=== PATIENT | male | born 1940 | race Caucasian/White ===

== ENCOUNTER → 2023-11-19 14:17 | Outpatient (REF) | payer OTHER, SELFPAY | LOC: RCS 14:17 | PROVIDERS: ATTENDING PHYSICIAN Family Medicine | DX: I49.9 Cardiac arrhythmia, unspecified (principal) | CPT/HCPCS: 93005 ==

== ENCOUNTER 2025-05-18 13:37 | Inpatient (IN) | payer OTHER, SELFPAY ==
[2025-05-18] VITALS (11 sets, daily range): BP systolic 148–180; BP diastolic 83–96; BMI 27.6
--- NOTE | 2025-05-18 09:02 | ED.GENMED ---
History of Present Illness
General
Chief Complaint: Fall
Time Seen by Provider: 05/18/25 08:44
History of Present Illness
History of Present Illness:
84-year-old male presents to the emergency department from home via EMS for evaluation after multiple falls. Had a fall yesterday and after that time was apparently not walking often. Today attempted to get up off the couch and slid to the floor.
He is complaining of right hip pain although history is limited secondary to dementia. Prior history of right total hip replacement. Patient offers no complaints other than right hip pain. No other concerns reported by family
Past History
Past History
ED Past Medical History: HTN, Hypercholesterolemia and Hypothyroidism
ED Past Surgical History: Cholecystectomy and Orthopedic
Social History
Tobacco: Former smoker
Personal:
Review of Systems
Review of Systems
Allergies reviewed?: Yes
All Other Systems: ROS reviewed and negative except as documented in HPI and ROS
Phy Exam
Physical Exam
Physical Exam:
GEN: Well appearing, NAD, WDWN
Eyes: PERRLA, EOMs intact, no scleral icterus
HENT: NCAT, oral mucosa moist
Lungs: CTAB, no wheezes, rales, rhonchi, normal chest wall excursion
Cardiac: RRR, no M/R/G, no peripheral edema. Radial pulses 2+ bilat
Abdomen: S, NT, ND, NABS, no masses or hepatosplenomegaly
Neuro: Alert to place, confused to events and time, moves all extremities freely, follows commands
MSK: No gross deformity or ecchymosis. No shortening or external rotation of the right lower extremity, tenderness elicited to the trochanteric region of the right hip, no palpable hematoma, range of motion exam deferred due to pain
Skin: No rashes, petechiae. Normal color, no pallor or jaundice.
Psych: Calm, cooperative, proper hygiene
Course
Orders/Labs/Results
Orders:
Orders
05/18/25 08:51
CR Hip - RT w/wo Pel 2-3 Vw* Urgent
Comment:
Reason For Exam: R hip pain, prior surgery
Include a pelvis x-ray?: Yes
05/18/25 08:57
Acetaminophen [Tylenol] 650 mg PO NOW STA
05/18/25 09:00
Complete Blood Count/With Diff Urgent
Comprehensive Metabolic Panel Urgent
05/18/25 09:10
Urinalysis Reflex To Culture Urgent
Date Specimen was Collected: 05/18/25
Time Specimen was Collected: 09:09
Urine Microscopic Reflex Cult Urgent
Urine Culture Urgent
KARMEN Source: U
Specimen Description:
Date Specimen was Collected: 05/18/25
Time Specimen was Collected: 09:09
05/18/25 10:22
CT Pelvis W/o Iv Contrast Urgent
Comment:
Reason For Exam: fall, R hip pain, neg XR
05/18/25 10:39
CefTRIAXone [Rocephin] 1,000 mg IV NOW STA
05/18/25 12:12
Ketorolac [Toradol] 15 mg IV NOW STA
05/18/25 13:08
Admit/Transfer Patient As Directed
Co-Sign Provider:
Level of Care: Inpatient admission
Assign to:: Medical/Surgical
Physician / Group: Hospitalist
Diagnosis: UTI
Reason for Hospitalization: UTI
Expected length of stay greater than two midnights?: Yes
ELOS- Estimated Length of Stay in days: 2
I certify the patient meets the requirements for IP care: Yes
PRN Pain Medication Management As Directed
May give lesser potent ordered pain med per pt: Yes
preference::
Protocol:: Medication orders for pain may be administered in a
manner that supports deferring to patient preference
when the pt is:
- Requesting an ordered lesser potent pain medication.
Least to most potent pain medications are defined
as: acetaminophen < NSAID < tramadol < opioids
(morphine, oxycodone, hydromorphone).
- Requesting a lesser dose of the same medication IF
ORDERED.
- Requesting a less intrusive route of administration
if both routes are prescribed by the provider (PO <
IV).
05/18/25 13:09
Code Status As Directed
Resuscitation Status: Full Code
Abnormal Lab Results
05/18/25 05/18/25
09:00 09:10
MCHC 32.2 L g/dL
(33.0-37.0)
Absolute Neuts (auto) 7.2 H 10^3/uL
(1.4-6.5)
Absolute Lymphs (auto) 1.0 L 10^3/uL
(1.2-3.4)
Neutrophils % 79.6 H %
(42.2-75.2)
Lymphocytes % 11.0 L %
(20.5-51.1)
Glucose 109 H mg/dl
(70-99)
Ur Occult Blood Reflex 4+ A
(Negative)
Urine Nitrite (Reflex) Positive A
(Negative)
Leukocyte Esterase Rfl 2+ A
(Negative)
Urine WBC (Reflex) 16-20 A /HPF
(0-5)
Urine Bacteria (Reflex) Many A
(Negative)
Urine Albumin (Reflex) 2+ A
(Neg - Trace)
05/18/25 09:00
05/18/25 09:00
Vital Signs
Initial and Last Documented VS:
Initial Vital Signs
Pulse Resp Pulse Ox
70 21 95
05/18/25 08:54 05/18/25 08:54 05/18/25 08:54
Last Documented Vital Signs
Temp Pulse Resp BP Pulse Ox
98.5 F 78 19 165/83 94
05/18/25 09:13 05/18/25 13:15 05/18/25 12:00 05/18/25 13:00 05/18/25 13:15
MDM/Problems Addressed
MDM/Problems Addressed:
Imaging shows no evidence of traumatic injury to the right hip or pelvis, given his clear weakness and ambulatory dysfunction will admit for treatment of UTI with IV antibiotics and PT considerations for rehab if needed
*Pulse Oximetry
Patient hypoxic: no
*Critical Care Note
Total Time (30-74mins, 75-104mins- exclusive of procedures): Not Applicable
ED Attending Note
-
Portions of this chart may have been created with voice recognition software.� Occasional wrong word or��sound alike� substitutions may have occurred due to the inherent limitations of voice recognition software.
Discharge Plan
Departure
Patient Disposition: Admit
Date of Disposition: 05/18/25
Time of Disposition: 12:11
Admit to: Med/Surg
Presentation/result/management discussed w/ accepting MD/DO: Hospitalist
Discharge Problem:
Acute UTI
Interventions
Interventions:
*General Assessment Last Done: 05/18/25 09:15
*Neglect/Abuse Screening Last Done: 05/18/25 09:15
*ED- Fall Risk Assessment Last Done: 05/18/25 09:13
*ED COVID-19 Vaccine History Last Done: 05/18/25 09:12
*ED Influenza Vaccine History Last Done: 05/18/25 09:12
ED-Musculoskeletal Assessment Last Done: 05/18/25 09:15
ED- Neurological Assessment Last Done: 05/18/25 09:15
ED-Skin Assessment Last Done: 05/18/25 09:21
[2025-05-18] MEDS: TYLENOL 650 MG PO (09:07)
[2025-05-18 09:10] LABS: Hematocrit 44.4 % (39.0-52.0); Hemoglobin 14.3 g/dL (13.0-18.0); Mean Corp Hgb Conc. 32.2 g/dL (33.0-37.0); Mean Corpuscular Volume 91.7 fL (80.0-94.0); Nucleated Red Blood Cells % 0 % (-); Platelet Count 157 10^3/uL (130-400); Red Cell Dist. Width 14.3 % (11.5-14.5)
[2025-05-18 09:20] LABS: ALT (SGPT) 24 U/L (0-50); AST (SGOT) 40 U/L (17-59); Albumin 4.5 g/dl (3.5-5.0); Alkaline Phosphatase 111 U/L (38-126); Blood Urea Nitrogen 16 mg/dl (9-20); Calcium 9.2 mg/dl (8.4-10.2); Carbon Dioxide 30 mmol/L (22-30); Chloride 101 mmol/L (98-107); Estimated Creatinine Clearance 64 ml/min; Glucose 109 mg/dl (70-99); Potassium 4.2 mmol/L (3.5-5.1); Sodium 136 mmol/L (135-145); Total Protein 7.7 g/dl (6.3-8.2); eGFR > 60.00
[2025-05-18 09:39] LABS: Urine Character Cloudy (Clear)
[2025-05-18 10:29] LABS: Urine Red Blood Cell 0-2 /HPF (0-2); Urine Squamous Cell 0-2 /LPF (Few); Urine White Cell 16-20 /HPF (0-5)
[2025-05-18] MEDS: ROCEPHIN 1000 MG IV (10:47)
[2025-05-18] MEDS: TORADOL 15 MG IV (12:14)
--- NOTE | 2025-05-18 12:15 | HPS.HSE ---
Addendum entered and electronically signed by Manuel Trivedi MD 05/18/25 13:51:
This is an addendum to the H&P written by Darrel Angelo on 05/18/2025. �Patient seen and examined independently with resident.
84-year-old male past medical history of chronic anemia, hypothyroidism, hyperlipidemia, Alzheimer's dementia, BPH, depression, right total hip replacement, chronic urinary incontinence/bowel, presenting with fall.
Patient had a mechanical fall yesterday complaining of pain on his right hip. �No syncope or lightheadedness or head injury. �Normally ambulate with walker/cane.
No urinary symptoms
Vital signs show blood pressure 160s to 180s.
Labs unremarkable.
Pelvic CT showed right total hip arthroplasty without evidence of periprosthetic fracture or dislocation. �Mild asymmetric soft tissue stranding and edema within the proximal lateral thigh which represent superficial contusion. �No fluid collection.
Urinalysis shows +2 leukocyte esterase, 16-20 white cells, positive nitrate, cloudy urine.
Patient with mechanical fall with contusion of the right thigh. �Tylenol for pain, ibuprofen as needed, Dilaudid for severe. �PT OT.
Urinalysis suggestive of UTI however patient without any urinary symptoms. Continue ceftriaxone for now but doubt UTI.
Original Note:
Family Physician
-
Family Physician: Jennifer Franks
Chief Complaint
-
UTI
History of Present Illness
84-year-old male with past medical history of chronic anemia, hypothyroidism, hyperlipidemia, dementia, BPH, depression presenting from home via EMS for evaluation of mechanical fall. Patient has a history of Alzheimer's dementia and family reports
that he is at his baseline mental status. Patient fell down yesterday after he got up from the couch, he slid onto his right side. He complains of pain in his right hip area, on the lateral aspect after the fall. Patient denies any
lightheadedness/dizziness, no syncopal episodes before or after the fall. He denies head strike, no loss of consciousness. Patient denies fever/chills, no recent hospitalizations, is not on DOACs. He sees [facility] for Alzheimer's
dementia.
ED course�vitals�heart rate 70, RR�21, 95% on room air, BP 165/90. Blood work unremarkable. Urinalysis with evidence of UTI. X-ray with right total hip arthroplasty without evidence of dislocation/periprosthetic fracture. Pelvis CT�no evidence
of periprosthetic fracture, mild soft tissue stranding/edema within the proximal lateral thigh�superficial contusion.
Medical History
Past Medical History
Past Medical History: Reports Other (chronic anemia, hypothyroidism, hyperlipidemia, dementia, BPH, depression)
Past Surgical History: Reports Cholecystectomy, Orthopedic (Bilateral, total knee replacement, right hip arthroplasty.) and Other (Cataract surgery)
Social History
Tobacco: Former Smoker
Alcohol: None
Drug: None
Personal:
Living: With Family
Family History
Family History: Not pertinent
Allergies / Home Medications
Allergies reflects when Allergies were last updated in [employer].
Home Medications with original date entered in [employer]
Allergy/Medication List:
Allergies
Allergy/AdvReac Type Severity Reaction Status Date / Time
No Known Allergies Allergy Verified 05/18/25 08:56
Home Medications
atorvastatin 10 mg tablet 10 mg PO DAILY High cholesterol 01/11/21
levothyroxine 25 mcg tablet 75 mcg PO DAILY Thyroid 01/11/21
aspirin 81 mg tablet,delayed release 81 mg PO DAILY 05/18/25
bupropion HCl 75 mg tablet 75 mg PO DAILY 05/18/25
cholecalciferol (vitamin D3) 25 mcg (1,000 unit) capsule (Vitamin D3) 25 mcg PO DAILY 05/18/25
cyanocobalamin (vitamin B-12) 1,000 mcg sublingual tablet 1,000 mcg sublingual DAILY 05/18/25
donepezil 5 mg tablet 5 mg PO HS 05/18/25
folic acid 1 mg tablet 1 mg PO DAILY 05/18/25
memantine 10 mg tablet 10 mg PO BID 05/18/25
tamsulosin 0.4 mg capsule 0.4 mg PO HS 05/18/25
Review of Systems
-
A 12 point ROS was completed and negative except as noted: Yes
Physical Exam
Vital Signs
Vital Signs
Temp Pulse Resp BP Pulse Ox
98.5 F 70 19 148/84 94
05/18/25 09:13 05/18/25 12:00 05/18/25 12:00 05/18/25 12:00 05/18/25 12:00
Physical Exam
General: No Apparent Distress, Comfortable and Conversant
HEENT: NormoCephalic and Atraumatic
Respiratory: Clear
Cardiac: S1/S2 and Regular Rhythm
GI: Soft, Non Tender, Non Distended and Normal Bowel Sounds
Genito-urinary: No costovertebral tender
Musculoskeletal: Other (Right hip-tenderness to palpation of the bilateral aspect, no visible bruising, erythema. Decreased range of motion in the right hip due to pain. Sensations intact.)
Skin: Warm and Dry
Neuro: Awake, Alert, Oriented and AO x 3
Laboratory Results
-
05/18/25 09:00
05/18/25 09:00
Laboratory Results
Total Bilirubin 1.1 mg/dl (0.2-1.3) 05/18/25 09:00
AST 40 U/L (17-59) 05/18/25 09:00
ALT 24 U/L (0-50) 05/18/25 09:00
Alkaline Phosphatase 111 U/L (38-126) 05/18/25 09:00
Impression/Plan
-
IMPRESSION:
84-year-old male with past medical history of chronic anemia, hypothyroidism, hyperlipidemia, dementia, BPH, depression presenting from home via EMS for evaluation of mechanical fall. Urinalysis with evidence of UTI.
PLAN:
#UTI
Patient is asymptomatic. Denies dysuria, hematuria.
History of urinary/bowel incontinence.
No prior history of UTIs.
Normal white count, patient is afebrile
UA with evidence of UTI
Will start Rocephin
Check urine culture, will narrow antibiotics pending culture
Monitor WBC, fever curve
#Mechanical fall
X-ray right hip�Right total hip arthroplasty without evidence of dislocation or periprosthetic fracture.
Pelvis CT�right total hip arthroplasty without evidence of periprosthetic fracture or dislocation.Mild asymmetric soft tissue stranding and edema within the proximal lateral thigh which may represent a superficial contusion. No fluid collection.
Adequate pain control�acetaminophen, ibuprofen as needed.
PT/OT
#Hypothyroidism
Continue levothyroxine
#Hypercholesterolemia
Continue atorvastatin
#Depression
Continue bupropion
#Alzheimer's dementia
Continue memantine
Continue donepezil
#BPH
Continue tamsulosin
#Will hold off on aspirin
DVT prophylaxis�SCDs
Diet�low-cholesterol
Full code
[2025-05-18] MEDS: TORADOL 10 MG IV (17:28)
[2025-05-18] MEDS: TYLENOL 1000 MG PO (19:52)
[2025-05-18] MEDS: NAMENDA 10 MG PO (19:52)
[2025-05-18] MEDS: FLOMAX 0.4 MG PO (21:03)
[2025-05-18] MEDS: ARICEPT 5 MG PO (21:04)
[2025-05-18] MEDS: LIPITOR 10 MG PO (21:04)
[2025-05-19] VITALS (7 sets, daily range): BP systolic 106–181; BP diastolic 67–99; PULSE 98; O2SAT 98
[2025-05-19] MEDS: TORADOL 10 MG IV (01:56)
[2025-05-19] MEDS: SYNTHROID 75 MCG PO (06:05)
[2025-05-19 06:29] LABS: Hematocrit 40.9 % (39.0-52.0); Hemoglobin 13.3 g/dL (13.0-18.0); Mean Corp Hgb Conc. 32.5 g/dL (33.0-37.0); Mean Corpuscular Volume 88.9 fL (80.0-94.0); Nucleated Red Blood Cells % 0 % (-); Platelet Count 146 10^3/uL (130-400); Red Cell Dist. Width 14.4 % (11.5-14.5)
[2025-05-19 06:59] LABS: ALT (SGPT) 22 U/L (0-50); AST (SGOT) 50 U/L (17-59); Albumin 3.7 g/dl (3.5-5.0); Alkaline Phosphatase 82 U/L (38-126); Blood Urea Nitrogen 27 mg/dl (9-20); Calcium 8.5 mg/dl (8.4-10.2); Carbon Dioxide 28 mmol/L (22-30); Chloride 104 mmol/L (98-107); Estimated Creatinine Clearance 44 ml/min; Glucose 101 mg/dl (70-99); Potassium 4.1 mmol/L (3.5-5.1); Sodium 139 mmol/L (135-145); Total Protein 6.5 g/dl (6.3-8.2); eGFR 54.51
[2025-05-19] MEDS: IMODIUM LIQUID PO ×2 (08:33→08:44)
[2025-05-19] MEDS: WELLBUTRIN REGULAR RELEASE 150 MG PO (08:33)
[2025-05-19] MEDS: FOLVITE 1 MG PO (08:33)
[2025-05-19] MEDS: NAMENDA 10 MG PO ×2 (08:35→20:10)
[2025-05-19] MEDS: VITAMIN D3 (cholecalciferol) 25 MCG PO (08:35)
[2025-05-19] MEDS: TYLENOL 1000 MG PO ×2 (08:38→14:46)
[2025-05-19] MEDS: APRESOLINE 5 MG IV (08:59)
[2025-05-19] MEDS: ROCEPHIN 1000 MG IV (09:50)
[2025-05-19] MEDS: STERILE WATER FOR INJECTION 10 ML IV (09:50)
--- NOTE | 2025-05-19 12:55 | W.PN.HOSP.TC ---
Today's Communication/Plan
-
Monitor vital signs see plan
Follow final urine culture
Continue with ceftriaxone
PT/OT
Assessment / Plan
Assessment / Plan
General: No Apparent Distress, Comfortable and Conversant
HEENT: NormoCephalic and Atraumatic
Respiratory: Clear
Cardiac: S1/S2 and Regular Rhythm
GI: Soft, Non Tender, Non Distended and Normal Bowel Sounds
Genito-urinary: No costovertebral tender
Musculoskeletal: Other (Right hip-tenderness to palpation of the bilateral aspect, no visible bruising, erythema. Decreased range of motion in the right hip due to pain. Sensations intact.)
Neuro: Awake, Alert, Oriented and AO x 3
UTI
Does endorse frequent urination
Urine culture with gram-negative rods, continue to monitor
Continue ceftriaxone
Monitor WBC, fever curve
#Mechanical fall
X-ray right hip�Right total hip arthroplasty without evidence of dislocation or periprosthetic fracture.
Pelvis CT�right total hip arthroplasty without evidence of periprosthetic fracture or dislocation.Mild asymmetric soft tissue stranding and edema within the proximal lateral thigh which may represent a superficial contusion. No fluid collection.
Patient to follow-up with orthopedics outpatient
Adequate pain control�acetaminophen, ibuprofen as needed.
PT/OT
#Hypothyroidism
Continue levothyroxine
#Hypercholesterolemia
Continue atorvastatin
#Depression
Continue bupropion
#Alzheimer's dementia
Continue memantine
Continue donepezil
#BPH
Continue tamsulosin
#Will hold off on aspirin
DVT prophylaxis�SCDs
Diet�low-cholesterol
Full code
Anticipated Discharge: 24 - 48 hours
Subjective/Interval History
-
Date of Service: May 19, 2025
Does have some pain at times
Objective Data
-
Labs:
Laboratory Results
05/19/25
05:52
WBC 8.0
Hgb 13.3
Hct 40.9
Plt Count 146
Sodium 139
Potassium 4.1
Chloride 104
Carbon Dioxide 28
BUN 27 H
Creatinine 1.3
Glucose 101 H
Calcium 8.5
Total Bilirubin 0.5
AST 50
ALT 22
Alkaline Phosphatase 82
Vital Signs:
Vital Signs
Temp Pulse Resp BP Pulse Ox
98.0 F 109 18 160/99 94
05/19/25 07:00 05/19/25 08:59 05/19/25 07:00 05/19/25 08:59 05/19/25 08:00
I&O
05/18/25 05/19/25 05/20/25
06:59 06:59 06:59
Intake Total 480 / 480
Balance 480 / 480
[2025-05-19] MEDS: ASPIR LOW (ENTERIC COATED) 81 MG PO (14:07)
[2025-05-19] MEDS: LIPITOR 10 MG PO (21:33)
[2025-05-19] MEDS: FLOMAX 0.4 MG PO (21:33)
[2025-05-19] MEDS: ARICEPT 5 MG PO (21:33)
[2025-05-20] MEDS: SYNTHROID 75 MCG PO (05:44)
[2025-05-20 07:00] VITALS: BP 120/70
[2025-05-20] MEDS: WELLBUTRIN REGULAR RELEASE 150 MG PO (08:46)
[2025-05-20] MEDS: ASPIR LOW (ENTERIC COATED) 81 MG PO (08:46)
[2025-05-20] MEDS: VITAMIN D3 (cholecalciferol) 25 MCG PO (08:46)
[2025-05-20] MEDS: IMODIUM LIQUID 1 MG PO (08:46)
[2025-05-20] MEDS: NAMENDA 10 MG PO ×2 (08:46→19:30)
[2025-05-20] MEDS: FOLVITE 1 MG PO (08:46)
[2025-05-20] MEDS: TYLENOL 1000 MG PO (09:08)
[2025-05-20 09:30] LABS: Hematocrit 41.2 % (39.0-52.0); Hemoglobin 13.5 g/dL (13.0-18.0); Mean Corp Hgb Conc. 32.8 g/dL (33.0-37.0); Mean Corpuscular Volume 88.2 fL (80.0-94.0); Nucleated Red Blood Cells % 0 % (-); Platelet Count 145 10^3/uL (130-400); Red Cell Dist. Width 14.7 % (11.5-14.5)
[2025-05-20 10:24] LABS: Blood Urea Nitrogen 33 mg/dl (9-20); Calcium 8.6 mg/dl (8.4-10.2); Carbon Dioxide 27 mmol/L (22-30); Chloride 103 mmol/L (98-107); Estimated Creatinine Clearance 53 ml/min; Glucose 94 mg/dl (70-99); Potassium 3.9 mmol/L (3.5-5.1); Sodium 135 mmol/L (135-145); eGFR > 60.00
[2025-05-20] MEDS: ROCEPHIN 1000 MG IV (10:57)
[2025-05-20] MEDS: STERILE WATER FOR INJECTION 10 ML IV (10:57)
--- NOTE | 2025-05-20 12:12 | W.PN.HOSP.TC ---
Today's Communication/Plan
-
Monitor vital signs and see plan
Continue antibiotic
PT recommended SNF, spouse agrees. Discussed with clinical nurse manager
Discharge planning
Assessment / Plan
Assessment / Plan
General: No Apparent Distress, Comfortable and Conversant
HEENT: NormoCephalic and Atraumatic
Respiratory: Clear
Cardiac: S1/S2 and Regular Rhythm
GI: Soft, Non Tender, Non Distended and Normal Bowel Sounds
Genito-urinary: No costovertebral tender
Musculoskeletal: Other (Right hip-tenderness to palpation of the bilateral aspect, no visible bruising, erythema. Decreased range of motion in the right hip due to pain. Sensations intact.)
Neuro: Awake, Alert, Oriented and AO x 3
UTI
Does endorse frequent urination
Urine culture with ecoli, continue to monitor
Continue ceftriaxone
Monitor WBC, fever curve
#Mechanical fall
X-ray right hip�Right total hip arthroplasty without evidence of dislocation or periprosthetic fracture.
Pelvis CT�right total hip arthroplasty without evidence of periprosthetic fracture or dislocation.Mild asymmetric soft tissue stranding and edema within the proximal lateral thigh which may represent a superficial contusion. No fluid collection.
Patient to follow-up with orthopedics outpatient
Adequate pain control�acetaminophen, ibuprofen as needed.
PT/OT recommending SNF. Discussed with spouse and they agree. Discussed with clinical nurse manager
#Hypothyroidism
Continue levothyroxine
#Hypercholesterolemia
Continue atorvastatin
#Depression
Continue bupropion
#Alzheimer's dementia
Continue memantine
Continue donepezil
#BPH
Continue tamsulosin
#Will hold off on aspirin
DVT prophylaxis�lovenox
Full code
Anticipated Discharge: Within 24 hours
Subjective/Interval History
-
Date of Service: May 20, 2025
denies pain
Objective Data
-
Labs:
Laboratory Results
05/20/25
08:52
WBC 8.6
Hgb 13.5
Hct 41.2
Plt Count 145
Sodium 135
Potassium 3.9
Chloride 103
Carbon Dioxide 27
BUN 33 H
Creatinine 1.1
Glucose 94
Calcium 8.6
Vital Signs:
Vital Signs
Temp Pulse Resp BP Pulse Ox
97.8 F 81 16 120/70 95
05/20/25 07:00 05/20/25 07:00 05/20/25 07:00 05/20/25 07:00 05/20/25 07:00
I&O
05/19/25 05/20/25 05/21/25
06:59 06:59 06:59
Intake Total 480 / 480 720 / 720
Balance 480 / 480 720 / 720
[2025-05-20 15:00] VITALS: BP 130/73
[2025-05-20] MEDS: LOVENOX 40 MG SC (17:56)
--- NOTE | 2025-05-20 18:04 | CM ---
Patient seen at bedside and to sleepy to respond earlier today. CM called to patient and she requested referral to [facility] as they are close by. CM reviewed other options but patient reluctant to go further away. CM will send referral to SNF
pending acceptance and bed availability. CM will continue to follow for discharge planning needs.
Plan; SNF; [facility]; pending bed availability, will need auth
[2025-05-20] MEDS: FLOMAX 0.4 MG PO (21:43)
[2025-05-20] MEDS: ARICEPT 5 MG PO (21:43)
[2025-05-20] MEDS: LIPITOR 10 MG PO (21:43)
[2025-05-20 22:59] VITALS: BP 164/89
[2025-05-21 00:22] VITALS: BP 152/70
[2025-05-21] MEDS: SYNTHROID 75 MCG PO (05:32)
[2025-05-21 07:57] VITALS: BP 150/78
[2025-05-21 08:14] LABS: Hematocrit 39.0 % (39.0-52.0); Hemoglobin 12.6 g/dL (13.0-18.0); Mean Corp Hgb Conc. 32.3 g/dL (33.0-37.0); Mean Corpuscular Volume 89.0 fL (80.0-94.0); Nucleated Red Blood Cells % 0 % (-); Platelet Count 157 10^3/uL (130-400); Red Cell Dist. Width 14.6 % (11.5-14.5)
[2025-05-21] MEDS: NAMENDA 10 MG PO ×2 (08:20→20:33)
[2025-05-21] MEDS: FOLVITE 1 MG PO (08:20)
[2025-05-21] MEDS: WELLBUTRIN REGULAR RELEASE 150 MG PO (08:20)
[2025-05-21] MEDS: ASPIR LOW (ENTERIC COATED) 81 MG PO (08:20)
[2025-05-21] MEDS: VITAMIN D3 (cholecalciferol) 25 MCG PO (08:20)
[2025-05-21] MEDS: IMODIUM LIQUID 1 MG PO (08:20)
[2025-05-21] MEDS: ULTRAM 50 MG PO ×2 (08:20→18:13)
[2025-05-21 08:24] LABS: Blood Urea Nitrogen 32 mg/dl (9-20); Calcium 8.5 mg/dl (8.4-10.2); Carbon Dioxide 28 mmol/L (22-30); Chloride 102 mmol/L (98-107); Estimated Creatinine Clearance 64 ml/min; Glucose 93 mg/dl (70-99); Potassium 4.1 mmol/L (3.5-5.1); Sodium 135 mmol/L (135-145); eGFR > 60.00
[2025-05-21] MEDS: ROCEPHIN 1000 MG IV (09:57)
[2025-05-21] MEDS: FLUSH (NSS) 2 FLUSH IV (09:58)
[2025-05-21] MEDS: STERILE WATER FOR INJECTION 10 ML IV (09:58)
--- NOTE | 2025-05-21 12:47 | W.PN.HOSP.TC ---
Today's Communication/Plan
-
Monitor vital signs
see plan
Switch antibiotics to cefdinir
Pending placement, case assistant aware
Assessment / Plan
Assessment / Plan
General: No Apparent Distress, Comfortable and Conversant
HEENT: NormoCephalic and Atraumatic
Respiratory: Clear
Cardiac: S1/S2 and Regular Rhythm
GI: Soft, Non Tender, Non Distended and Normal Bowel Sounds
Genito-urinary: No costovertebral tender
Musculoskeletal: Other (Right hip-tenderness to palpation of the bilateral aspect, no visible bruising, erythema. Decreased range of motion in the right hip due to pain. Sensations intact.)
Neuro: Awake, Alert, Oriented and AO x 3
UTI
Does endorse frequent urination
Urine culture with ecoli, continue to monitor
Switch antibiotics to cefdinir to complete the course
Monitor WBC, fever curve
#Mechanical fall
X-ray right hip�Right total hip arthroplasty without evidence of dislocation or periprosthetic fracture.
Pelvis CT�right total hip arthroplasty without evidence of periprosthetic fracture or dislocation.Mild asymmetric soft tissue stranding and edema within the proximal lateral thigh which may represent a superficial contusion. No fluid collection.
Patient to follow-up with orthopedics outpatient
Adequate pain control�acetaminophen, ibuprofen as needed.
PT/OT recommending SNF. Discussed with spouse and they agree. Discussed with case assistant, pending placement
#Hypothyroidism
Continue levothyroxine
#Hypercholesterolemia
Continue atorvastatin
#Depression
Continue bupropion
#Alzheimer's dementia
Continue memantine
Continue donepezil
#BPH
Continue tamsulosin
DVT prophylaxis�lovenox
Full code
Anticipated Discharge: Today
Subjective/Interval History
-
Date of Service: May 21, 2025
Denies pain
Objective Data
-
Labs:
Laboratory Results
11/08/25
06:58
WBC 7.9
Hgb 12.6 L
Hct 39.0
Plt Count 157
Sodium 135
Potassium 4.1
Chloride 102
Carbon Dioxide 28
BUN 32 H
Creatinine 0.9
Glucose 93
Calcium 8.5
Vital Signs:
Vital Signs
Temp Pulse Resp BP Pulse Ox
98.4 F 88 20 150/78 94
05/21/25 07:57 05/21/25 07:57 05/21/25 07:57 05/21/25 07:57 05/21/25 07:57
I&O
05/20/25 05/21/25 05/22/25
06:59 06:59 06:59
Intake Total 720 / 720 1680 / 1680
Balance 720 / 720 1680 / 1680
[2025-05-21] MEDS: TYLENOL 1000 MG PO ×2 (12:51→20:33)
--- NOTE | 2025-05-21 13:29 | PTCARENOTE ---
Pt requested cough medication, made aware, new order provided, see MAR.
[2025-05-21] MEDS: MUCINEX 600 MG PO ×2 (13:33→20:33)
[2025-05-21 15:38] VITALS: BP 105/53
[2025-05-21] MEDS: LOVENOX 40 MG SC (17:40)
[2025-05-21] MEDS: FLOMAX 0.4 MG PO (21:39)
[2025-05-21] MEDS: LIPITOR 10 MG PO (21:39)
[2025-05-21] MEDS: ARICEPT 5 MG PO (21:39)
[2025-05-21 23:00] VITALS: BP 134/64
[2025-05-22] MEDS: SYNTHROID 75 MCG PO (05:47)
[2025-05-22] MEDS: TYLENOL 1000 MG PO ×2 (05:48→13:03)
[2025-05-22 07:26] VITALS: BP 133/75
[2025-05-22] MEDS: ASPIR LOW (ENTERIC COATED) 81 MG PO (08:55)
[2025-05-22] MEDS: NAMENDA 10 MG PO ×2 (08:55→20:57)
[2025-05-22] MEDS: OMNICEF 300 MG PO ×2 (08:55→20:56)
[2025-05-22] MEDS: WELLBUTRIN REGULAR RELEASE 150 MG PO (08:55)
[2025-05-22] MEDS: MUCINEX 600 MG PO ×2 (08:55→20:56)
[2025-05-22] MEDS: FOLVITE 1 MG PO (08:56)
[2025-05-22] MEDS: IMODIUM LIQUID 1 MG PO (08:56)
[2025-05-22] MEDS: VITAMIN D3 (cholecalciferol) 25 MCG PO (08:56)
[2025-05-22] MEDS: ULTRAM 50 MG PO ×2 (09:22→17:34)
[2025-05-22 10:34] LABS: Blood Urea Nitrogen 27 mg/dl (9-20); Calcium 8.5 mg/dl (8.4-10.2); Carbon Dioxide 27 mmol/L (22-30); Chloride 104 mmol/L (98-107); Estimated Creatinine Clearance 72 ml/min; Glucose 96 mg/dl (70-99); Hematocrit 38.2 % (39.0-52.0); Hemoglobin 12.3 g/dL (13.0-18.0); Mean Corp Hgb Conc. 32.2 g/dL (33.0-37.0); Mean Corpuscular Volume 90.5 fL (80.0-94.0); Nucleated Red Blood Cells % 0 % (-); Platelet Count 144 10^3/uL (130-400); Potassium 4.2 mmol/L (3.5-5.1); Red Cell Dist. Width 14.8 % (11.5-14.5); Sodium 140 mmol/L (135-145); eGFR > 60.00
--- NOTE | 2025-05-22 12:09 | W.PN.HOSP.TC ---
Addendum entered and electronically signed by Joel Brown MD 05/22/25 14:45:
Continue antibiotic through 05/28/2025
Original Note:
Today's Communication/Plan
-
Monitor vital signs see plan
Discussed with case management associate again, pending placement
Continue with cefdinir
Assessment / Plan
Assessment / Plan
General: No Apparent Distress, Comfortable and Conversant
HEENT: NormoCephalic and Atraumatic
Respiratory: Clear
Cardiac: S1/S2 and Regular Rhythm
GI: Soft, Non Tender, Non Distended and Normal Bowel Sounds
Genito-urinary: No costovertebral tender
Musculoskeletal: Other (Right hip-tenderness to palpation of the bilateral aspect, no visible bruising, erythema. Sensations intact.)
Neuro: Awake, Alert, Oriented and AO x 2
UTI
Does endorse frequent urination
Urine culture with ecoli, continue to monitor
Switch antibiotics to cefdinir to complete the course
Monitor WBC, fever curve
#Mechanical fall
X-ray right hip�Right total hip arthroplasty without evidence of dislocation or periprosthetic fracture.
Pelvis CT�right total hip arthroplasty without evidence of periprosthetic fracture or dislocation.Mild asymmetric soft tissue stranding and edema within the proximal lateral thigh which may represent a superficial contusion. No fluid collection.
Patient to follow-up with orthopedics outpatient
Adequate pain control�acetaminophen, ibuprofen as needed.
PT/OT recommending SNF. Discussed with spouse and they agree. Discussed with case management associate, pending placement
#Hypothyroidism
Continue levothyroxine
#Hypercholesterolemia
Continue atorvastatin
#Depression
Continue bupropion
#Alzheimer's dementia
Continue memantine
Continue donepezil
#BPH
Continue tamsulosin
DVT prophylaxis�lovenox
Full code
Anticipated Discharge: Within 24 hours
Subjective/Interval History
-
Date of Service: May 22, 2025
Denies nausea
Objective Data
-
Labs:
Laboratory Results
05/22/25
09:27
WBC 4.1 L
Hgb 12.3 L
Hct 38.2 L
Plt Count 144
Sodium 140
Potassium 4.2
Chloride 104
Carbon Dioxide 27
BUN 27 H
Creatinine 0.8
Glucose 96
Calcium 8.5
Vital Signs:
Vital Signs
Temp Pulse Resp BP Pulse Ox
97.5 F 75 21 133/75 95
05/22/25 07:26 05/22/25 07:26 05/22/25 07:26 05/22/25 07:26 05/22/25 07:26
I&O
05/21/25 05/22/25 05/23/25
06:59 06:59 06:59
Intake Total 1680 / 1680 1380 / 1380
Balance 1680 / 1680 1380 / 1380
[2025-05-22 16:06] VITALS: BP 129/61
--- NOTE | 2025-05-22 16:09 | CM ---
CM spoke with hospitalist regarding accepted to [facility]
Per [facility] bed available tomorrow
Spoke with patient & Smita - agreeable
[employer] Auth initiated in [employer]
Pended Reference # [id number]
updated PT/OT notes needed-therapy aware
CM to fax clinicals to [phone]
IMM explained & signed. In chart
PLAN: [facility], ONCE AUTH APPROVED
[2025-05-22] MEDS: LOVENOX 40 MG SC (17:18)
[2025-05-22] MEDS: FLOMAX 0.4 MG PO (20:57)
[2025-05-22] MEDS: LIPITOR 10 MG PO (20:57)
[2025-05-22] MEDS: ARICEPT 5 MG PO (20:57)
[2025-05-22 23:00] VITALS: BP 144/82
[2025-05-23] MEDS: SYNTHROID 75 MCG PO (05:32)
[2025-05-23] MEDS: ULTRAM 50 MG PO (05:56)
[2025-05-23 07:45] VITALS: BP 145/77
[2025-05-23 07:59] LABS: Hematocrit 39.5 % (39.0-52.0); Hemoglobin 12.4 g/dL (13.0-18.0); Mean Corp Hgb Conc. 31.4 g/dL (33.0-37.0); Mean Corpuscular Volume 92.7 fL (80.0-94.0); Nucleated Red Blood Cells % 0 % (-); Platelet Count 152 10^3/uL (130-400); Red Cell Dist. Width 14.9 % (11.5-14.5)
[2025-05-23] MEDS: FOLVITE 1 MG PO (08:19)
[2025-05-23] MEDS: NAMENDA 10 MG PO ×2 (08:19→20:33)
[2025-05-23] MEDS: OMNICEF 300 MG PO ×2 (08:19→20:33)
[2025-05-23] MEDS: WELLBUTRIN REGULAR RELEASE 150 MG PO (08:19)
[2025-05-23] MEDS: VITAMIN D3 (cholecalciferol) 25 MCG PO (08:19)
[2025-05-23] MEDS: ASPIR LOW (ENTERIC COATED) 81 MG PO (08:19)
[2025-05-23] MEDS: MUCINEX 600 MG PO ×2 (08:20→20:32)
[2025-05-23] MEDS: IMODIUM LIQUID 1 MG PO (08:20)
[2025-05-23 09:20] VITALS: BP 128/67; PULSE 72; O2SAT 96
[2025-05-23 09:24] VITALS: BP 128/67; PULSE 72; O2SAT 96
--- NOTE | 2025-05-23 09:41 | STATUS ---
SITUATION:
BACKGROUND:
ASSESSMENT:
RECOMMENDATION:
--- NOTE | 2025-05-23 09:42 | CM ---
faxed clinicals to [facility] at [phone] for [facility]
Pended Reference # [id number]
plan: [facility], ONCE AUTH APPROVED
--- NOTE | 2025-05-23 14:14 | W.PN.HOSP.TC ---
Today's Communication/Plan
-
dispo planning for SNF
Assessment / Plan
Assessment / Plan
General: No Apparent Distress, Comfortable and Conversant
HEENT: NormoCephalic and Atraumatic
Respiratory: Clear
Cardiac: S1/S2 and Regular Rhythm
GI: Soft, Non Tender, Non Distended and Normal Bowel Sounds
Genito-urinary: No costovertebral tender
Musculoskeletal: Other (Right hip-tenderness to palpation of the bilateral aspect, no visible bruising, erythema. Sensations intact.)
Neuro: Awake, Alert, Oriented and AO x 2
UTI
Does endorse frequent urination
Urine culture with ecoli, continue to monitor
Switch antibiotics to cefdinir to complete the course. Today is day 5/7
Monitor WBC, fever curve
#Mechanical fall
X-ray right hip�Right total hip arthroplasty without evidence of dislocation or periprosthetic fracture.
Pelvis CT�right total hip arthroplasty without evidence of periprosthetic fracture or dislocation.Mild asymmetric soft tissue stranding and edema within the proximal lateral thigh which may represent a superficial contusion. No fluid collection.
Patient to follow-up with orthopedics outpatient
Adequate pain control�acetaminophen, ibuprofen as needed.
PT/OT recommending SNF. Discussed with spouse and they agree. Discussed with casework manager, pending placement
#Hypothyroidism
Continue levothyroxine
#Hypercholesterolemia
Continue atorvastatin
#Depression
Continue bupropion
#Alzheimer's dementia
Continue memantine
Continue donepezil
#BPH
Continue tamsulosin
DVT prophylaxis�lovenox
Full code
Anticipated Discharge: Within 24 hours
Subjective/Interval History
-
Date of Service: May 23, 2025
patient is feeling well
awoken from sleep
waiting on insurance auth for SNF
Objective Data
-
Labs:
Laboratory Results
05/23/25
06:39
WBC 5.2
Hgb 12.4 L
Hct 39.5
Plt Count 152
Vital Signs:
Vital Signs
Temp Pulse Resp BP Pulse Ox
97.4 F 74 14 145/77 93
05/23/25 07:45 05/23/25 07:45 05/23/25 07:45 05/23/25 07:45 05/23/25 09:08
I&O
05/22/25 05/23/25 05/24/25
06:59 06:59 06:59
Intake Total 1380 / 1380 1020 / 1020
Balance 1380 / 1380 1020 / 1020
Review of Systems
-
History Source: Patient
All other systems: Reviewed and negative
Physical Exam
-
General: No Apparent Distress
HEENT: PERRLA
Respiratory: Clear to Auscultation; Negative Wheezes
Cardiac: Regular Rhythm and S1/S2
GI: Soft and Nontender
Musculoskeletal: No Edema
Skin: Warm and Dry; Negative Rash
Neuro: AO x 3
Psych: Calm
Data Reviewed
-
Diagnostic Radiology: Report Reviewed by me
Labs: Labs Reviewed by me
[2025-05-23 15:00] VITALS: BP 100/62
[2025-05-23] MEDS: LOVENOX 40 MG SC (17:43)
[2025-05-23] MEDS: ARICEPT 5 MG PO (20:46)
[2025-05-23] MEDS: LIPITOR 10 MG PO (20:46)
[2025-05-23] MEDS: FLOMAX 0.4 MG PO (20:46)
--- NOTE | 2025-05-23 20:59 | W.DCSUMMARY ---
Discharge Summary
Discharge Data
Date of Admission: 05/18/25
Date of Discharge: 05/24/25
-
Pending Results: No
Hospital Course
Discharging Physician : Dr. Renay Stephenson
Disposition : SNF
Primary care physician : Dr. Jennifer Franks
Principal Discharge diagnosis : Urinary Tract Infection
Hospital Course :
Mr. Gaston Cedillo is a 84 yo man with hx anemia, hypothyroidism, HLD, Alzheimer's dementia, BPH, depression, total right hip replacement presents to the ER post fall. Post fall patient complained of right hip pain.
Triage vitals significant for hypertension. Labs without leukocytosis. CT Pelvis with total right hip arthroplasty without evidence of periprosthetic fracture or dislocation. Mild asymmetric soft tissue stranding and edema within the proximal
lateral thigh which could represent superficial contusion. UA with inflammation.
Patient was admitted to medicine for treatment of UTI, and symptomatic treatment/pain management of left thigh contusion.
Urine culture grew reed-sensitive E. Coli. He was given IV Ceftriaxone then transitioned to Cefdinir to complete a 8 day course.
Patient's hemoglobin remained stable. Pain treated with Tylenol. PT is recommending SNF.
Time spent on discharge was 31 minutes.
Important imaging findings :
Pelvis CT
IMPRESSION:
Right total hip arthroplasty without evidence of periprosthetic fracture or dislocation. There is no evidence acute fracture within the pelvis.
Mild asymmetric soft tissue stranding and edema within the proximal lateral thigh which may represent a superficial contusion. No fluid collection.
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
Procedure findings :
Discharge Plan
-
Patient Disposition: Group Home/SNF
Discharge Diagnosis/Procedures: Urinary tract infection
Mechanical fall with proximal lateral thigh superficial contusion
Condition: Fair
Diet: As tolerated and Low Cholesterol
Activity: With assistance and As tolerated
Driving Restrictions: Not until seen by your Dr
Other Services: PT and OT
Referrals:
Jennifer Franks, DO [Family Provider, Family Practice] - in less than 1 week
Additional Discharge Medication Instructions: Complete Cefdinir course as prescribed (through 05/25/25)
Prescriptions:
New
cefdinir 300 mg Capsule
300 mg PO Q12 Qty: 3 0RF
Continued
levothyroxine 25 MCG tablet
75 mcg PO DAILY@0600
atorvastatin 10 MG tablet
10 mg PO HS
donepezil 5 mg Tablet
5 mg PO HS
aspirin 81 mg Tablet,Delayed Release (Dr/Ec)
81 mg PO DAILY
tamsulosin 0.4 mg Capsule
0.4 mg PO HS
bupropion HCl 75 mg Tablet
150 mg PO DAILY
folic acid 1 mg Tablet
1 mg PO DAILY
cholecalciferol (vitamin D3) [Vitamin D3] 25 mcg (1,000 unit) Capsule
25 mcg PO DAILY
memantine 10 mg Tablet
10 mg PO BID
acetaminophen 500 mg Tablet
1,000 mg PO Q6H PRN (Reason: mild pain)
loperamide [Imodium A-D] 1 mg/7.5 mL Liquid
1 mg PO DAILY
Discharge Orders:
Discharge Patient (As Directed); Ordered 05/24/25
Ordered By: Renay Stephenson
Discharge Date and Time
Print Language: MONEGASQUE
[2025-05-23 23:13] VITALS: BP 128/76
[2025-05-24] MEDS: SYNTHROID 75 MCG PO (05:27)
[2025-05-24 07:00] VITALS: BP 142/77
[2025-05-24] MEDS: IMODIUM LIQUID 1 MG PO (07:50)
[2025-05-24] MEDS: MUCINEX 600 MG PO (07:50)
[2025-05-24] MEDS: OMNICEF 300 MG PO (07:50)
[2025-05-24] MEDS: FOLVITE 1 MG PO (07:50)
[2025-05-24] MEDS: NAMENDA 10 MG PO (07:50)
[2025-05-24] MEDS: WELLBUTRIN REGULAR RELEASE 150 MG PO (07:50)
[2025-05-24] MEDS: ASPIR LOW (ENTERIC COATED) 81 MG PO (07:50)
[2025-05-24] MEDS: VITAMIN D3 (cholecalciferol) 25 MCG PO (07:50)
--- NOTE | 2025-05-24 08:57 | CM ---
Addendum entered by Varsha Hampton 05/24/25 16:15:
Pt discharged today to [facility]. 4:30 pickup time
Addendum entered by Varsha Hampton 05/24/25 09:37:
Spouse made aware of possible DC today and that we obtained an auth. Will transport pt by ambulance.
Addendum entered by Varsha Hampton 05/24/25 09:23:
[facility]
Report: [phone]

Original Note:
[employer] auth received for [facility]
auth # [id number]
Skilled care
Start date:05-23-25
Next review date:05-29-25
Updates to
Dr. Stephenson made aware
Plan: DC to [facility]
--- NOTE | 2025-05-24 11:34 | W.PN.HOSP.TC ---
Today's Communication/Plan
-
OK for DC today
Assessment / Plan
Assessment / Plan
General: No Apparent Distress, Comfortable and Conversant
HEENT: NormoCephalic and Atraumatic
Respiratory: Clear
Cardiac: S1/S2 and Regular Rhythm
GI: Soft, Non Tender, Non Distended and Normal Bowel Sounds
Genito-urinary: No costovertebral tender
Musculoskeletal: Other (Right hip-tenderness to palpation of the bilateral aspect, no visible bruising, erythema. Sensations intact.)
Neuro: Awake, Alert, Oriented and AO x 2
UTI
Does endorse frequent urination
Urine culture with ecoli, continue to monitor
Switch antibiotics to cefdinir to complete the course. Today is day 7/
Monitor WBC, fever curve
#Mechanical fall
X-ray right hip�Right total hip arthroplasty without evidence of dislocation or periprosthetic fracture.
Pelvis CT�right total hip arthroplasty without evidence of periprosthetic fracture or dislocation.Mild asymmetric soft tissue stranding and edema within the proximal lateral thigh which may represent a superficial contusion. No fluid collection.
Patient to follow-up with orthopedics outpatient
Adequate pain control�acetaminophen, ibuprofen as needed.
PT/OT recommending SNF. DC to SNF today
#Hypothyroidism
Continue levothyroxine
#Hypercholesterolemia
Continue atorvastatin
#Depression
Continue bupropion
#Alzheimer's dementia
Continue memantine
Continue donepezil
#BPH
Continue tamsulosin
DVT prophylaxis�lovenox
Full code
Anticipated Discharge: Today
Subjective/Interval History
-
Date of Service: May 24, 2025
Feeling well, feels ready to leave
Objective Data
-
Vital Signs:
Vital Signs
Temp Pulse Resp BP Pulse Ox
98.0 F 77 18 142/77 96
05/24/25 07:00 05/24/25 07:00 05/24/25 07:00 05/24/25 07:00 05/24/25 09:49
I&O
05/23/25 05/24/25 05/25/25
06:59 06:59 06:59
Intake Total 1020 / 1020 1080 / 1080
Balance 1020 / 1020 1080 / 1080
Review of Systems
-
History Source: Patient
All other systems: Reviewed and negative
Physical Exam
-
General: No Apparent Distress
HEENT: PERRLA
Respiratory: Clear to Auscultation; Negative Wheezes
Cardiac: Regular Rhythm and S1/S2
GI: Soft and Nontender
Musculoskeletal: No Edema
Skin: Warm and Dry; Negative Rash
Neuro: AO x 3
Psych: Calm
Data Reviewed
-
Diagnostic Radiology: Report Reviewed by me
Labs: Labs Reviewed by me
--- NOTE | 2025-05-24 11:50 | W.DS.TRANS ---
DC Summary - Segment Block Layer
-
Discharge Instructions:
Discharge Diagnosis/Procedures Urinary tract infection
Mechanical fall with proximal lateral thigh
superficial contusion
Diet As tolerated,Low Cholesterol
Activity As tolerated,With assistance
Driving Restrictions Not until seen by your Dr
Other Services PT,OT
Instructions:
Stand-Alone Forms:
Changes to Home Medications: Yes
Discharge Medications:
DC Medications w/original date entered in [facility]
atorvastatin 10 mg tablet 10 mg PO HS High cholesterol 01/11/21
levothyroxine 25 mcg tablet 75 mcg PO DAILY@0600 Thyroid 01/11/21
acetaminophen 500 mg tablet 1,000 mg PO Q6H PRN mild pain 05/18/25
aspirin 81 mg tablet,delayed release 81 mg PO DAILY Blood Clot Prevention/Tx 05/18/25
bupropion HCl 75 mg tablet 150 mg PO DAILY Mental Health/Anxiety 05/18/25
cholecalciferol (vitamin D3) 25 mcg (1,000 unit) capsule (Vitamin D3) 25 mcg PO DAILY Supplement 05/18/25
donepezil 5 mg tablet 5 mg PO HS Neurological Condition 05/18/25
folic acid 1 mg tablet 1 mg PO DAILY Supplement 05/18/25
loperamide 1 mg/7.5 mL oral liquid (Imodium A-D) 1 mg PO DAILY Loose Stools 05/18/25
memantine 10 mg tablet 10 mg PO BID Neurological Condition 05/18/25
tamsulosin 0.4 mg capsule 0.4 mg PO HS Urinary Issue 05/18/25
cefdinir 300 mg capsule 300 mg PO Q12 #3 caps 05/23/25
Home Medication Changes
addition of Cefdinir
Pending Results: No
[2025-05-24] MEDS: FLUZONE HIGH-DOSE 2025-26 0.5 ML IM (12:32)
[2025-05-24 14:58] VITALS: BP 116/70
== END 2025-05-24 17:38 | DRG 690 ==
LOC: 3 WEST ACU 13:37
PROVIDERS: Internal Medicine; Physician Assistant; Student in an Organized Health Care Education/Training Program; ADMITTING PHYSICIAN Hospitalist; ATTENDING PHYSICIAN Student in an Organized Health Care Education/Training Program; EMERGENCY PHYSICIAN Emergency Medicine; FAMILY PHYSICIAN Family Medicine
DX: N39.0 Urinary tract infection, site not specified (principal); F02.83 Dementia in other diseases classified elsewhere, unspecified severity, with mood disturbance; S70.11XA Contusion of right thigh, initial encounter; D64.9 Anemia, unspecified; E03.9 Hypothyroidism, unspecified; B96.20 Unspecified Escherichia coli [E. coli] as the cause of diseases classified elsewhere; E78.00 Pure hypercholesterolemia, unspecified; N40.0 Benign prostatic hyperplasia without lower urinary tract symptoms; G30.9 Alzheimer's disease, unspecified; F32.A Depression, unspecified; I10 Essential (primary) hypertension; R29.6 Repeated falls; W18.30XA Fall on same level, unspecified, initial encounter; Z96.641 Presence of right artificial hip joint; Z79.899 Other long term (current) drug therapy; Z87.891 Personal history of nicotine dependence; Z79.890 Hormone replacement therapy
CPT/HCPCS: 72192; 73502; 80048; 80053; 81003; 81015; 85025; 87077; 87086; 87186; 90662; 96374; 96375; 97163; 97167; 97530; 97535; 99285; G0008